=== PATIENT | female | born 1985 | race Caucasian/White ===

== ENCOUNTER 2017-01-20 15:42 | Observation (INO) ==
[2017-01-20] MEDS ORDERED: IOPAMIDOL 100 ML BOTTLE IJ ONE (15:43)
[2017-01-20] MEDS ORDERED: 0.9 % SODIUM CHLORIDE 1,000 ML IV ONE (16:01)
[2017-01-20] MEDS ORDERED: ONDANSETRON 4 MG/2 ML VIAL IV ONE ×2 (16:01→22:19)
--- NOTE | 2017-01-20 16:01 | Emergency Department Note ---
General Adult HPI - General Chief complaint: Abdominal Pain Stated complaint: Abd pain Time Seen by Provider: 01/20/17 15:57 Source: patient Mode of arrival: ambulatory Limitations: no limitations - History of Present Illness HPI Narrative: This patient returns to the emergency room. She was seen here 2 AM with nausea vomiting abdominal pain. Has slight diarrhea yesterday. Pain seems to be crampy but does not go away completely and is felt primarily in the epigastric region and goes through to her back. No history of symptoms like this before no history of pancreatitis GERD. Onset (ago): hour(s) Location: abdomen Radiation: back Severity: moderate Consistency: constant, intermittent, colicky Improves with: none Worsens with: none Associated symptoms: Reports: nausea/vomiting Treatments Prior to Arrival: other (Zofran) - Related Data Previous Rx's Medication Instructions Recorded Omeprazole [PriLOSEC] 20 mg PO BIDAC #10 capsule 01/20/17 Allergies Allergy/AdvReac Type Severity Reaction Status Date / Time No Known Drug Allergies Allergy Unverified 01/20/17 00:13 Review of Systems Constitutional: Denies: fever Eyes: Denies: eye pain ENT ED: Denies: ear pain Cardiovascular: Denies: chest pain Respiratory: Denies: cough Gastrointestinal: Reports: abdominal pain, nausea, vomiting, diarrhea. Denies: constipation, hematemesis, melena, hematochezia Genitourinary: Denies: urgency, dysuria, frequency Musculoskeletal: Reports: back pain Integumentary: Denies: rash Neurological: Denies: headache Psychiatric: Denies: anxiety, depression Past Medical History - Past Medical History Medical history: Reports: thyroid disease Surgical history ED: Reports: non-contributory WAIST PLEATER history: Reports: other (D&C vaginal delivery) Physical Exam - General Limitations: no limitations General appearance: alert - Head Head exam: atraumatic, normocephalic - Eye Eye exam: Present: normal appearance - ENT ENT exam: normal exam - Neck Neck exam: Present: normal inspection - Chest Chest inspection: Present: normal inspection - Respiratory Respiratory exam: Present: normal lung sounds bilaterally - Cardiovascular Cardiovascular exam: Present: regular rate, normal rhythm, normal heart sounds - Abdominal Exam Abdominal exam: Present: soft, tenderness. Absent: distention, guarding, rebound, rigidity Abdominal tenderness: Present: epigastrium, mild - Neurological Exam Neurological exam: Present: alert - Psychiatric Psychiatric exam: Present: normal affect, normal mood - Skin Skin exam: Present: warm, dry, intact Course Vital Signs Temperature 96.8 F L 01/20/17 15:43 Pulse Rate 64 01/20/17 15:43 Respiratory Rate 20 01/20/17 15:43 Blood Pressure 127/83 01/20/17 15:43 Pulse Oximetry (%) 99 01/20/17 15:43 Temperature 96.8 F L 01/20/17 15:43 Pulse Rate 61 01/20/17 21:45 Respiratory Rate 20 01/20/17 15:43 Blood Pressure 125/85 01/20/17 21:45 Pulse Oximetry (%) 98 01/20/17 21:45 Medical Decision Making - [facility] Narrative Medical decision making narrative: This patient has a stone in the neck of her gallbladder. sHe has had constant pain for 20 hours. I have discussed case with Dr. Holt and she will be admitted to the floor for surgery tomorrow - Lab Data Lab results reviewed: Yes I reviewed the patient's lab results. Result diagrams: 01/20/17 16:08 01/20/17 16:08 Lab Results 01/20/17 01/20/17 Range/Units 16:08 16:08 WBC 10.0 (4.5-11.0) K/mcL RBC 4.04 (4.00-5.20) M/mcL Hgb 13.3 (12.0-15.0) g/dL Hct 38.6 (36.0-48.0) % MCV 95.7 (80.0-100.0) fL MCH 32.9 (26.0-34.0) pg MCHC 34.4 (31.0-36.0) g/dL RDW 13.0 (11.5-14.5) % Plt Count 253 (140-440) K/mcL MPV 8.2 (7.4-10.4) fL Gran % 75.0 (38.0-78.0) % Lymph % (Auto) 20.1 (15.5-49.0) % [place] % (Auto) 4.6 (1.0-12.0) % Eos % (Auto) 0.2 (0.0-7.0) % Baso % (Auto) 0.1 (0.0-2.0) % Gran # 7.5 (1.8-8.0) K/mcL Lymph # 2.0 (1.5-4.8) K/mcL [place] # 0.5 (0.1-0.9) K/mcL Eos # 0 (0.0-0.7) K/mcL Baso # 0 (0.0-0.3) K/mcL Sodium 137 (133-145) mmol/L Potassium 3.6 (3.3-5.1) mmol/L Chloride 101 (96-108) mmol/L Carbon Dioxide 26 (22-30) mmol/L Anion Gap 10.0 (8-16) BUN 5 L (6-20) mg/dl Creatinine 0.7 (0.6-1.1) mg/dl GFR Calculation 114 Glucose 110 H (70-105) mg/dL Calcium 9.3 (8.6-10.4) mg/dl Total Bilirubin 0.4 (0.0-1.0) mg/dL AST 12 (0-37) U/l ALT 16 (0-40) U/l Alkaline Phosphatase 73 (39-117) U/L Total Protein 7.4 (5.9-8.4) gm/dL Albumin 4.5 (3.2-5.2) gm/dL Globulin 2.9 (2.2-3.7) gm/dL Albumin/Globulin Ratio 1.6 (1.0-2.3) Lipase 39 (7-60) U/L - Radiology Data Radiology results reviewed: Yes I reviewed the patient's radiology results. Disposition Clinical Impression: Cholecystitis Disposition: Xfer As Inpt ([facility]) Condition: Good Time of Disposition: 22:33
[2017-01-20] MEDS: HYDROmorphone 2 MG/ML SYRINGE IV PRN ×5 (16:36→23:55)
[2017-01-20 16:51] LABS: Basophils # (Auto) 0 K/mcL (0.0-0.3); Basophils % (Auto) 0.1 % (0.0-2.0); Eosinophils # (Auto) 0 K/mcL (0.0-0.7); Eosinophils % (Auto) 0.2 % (0.0-7.0); Lymphocytes % (Auto) 20.1 % (15.5-49.0); Mean Cell Volume 95.7 fL (80.0-100.0); Mean Corpuscular HGB Conc 34.4 g/dL (31.0-36.0); Mean Corpuscular Hemoglobin 32.9 pg (26.0-34.0); Monocytes # (Auto) 0.5 K/mcL (0.1-0.9); Monocytes % (Auto) 4.6 % (1.0-12.0); Platelet Count 253 K/mcL (140-440); RBC 4.04 M/mcL (4.00-5.20)
[2017-01-20 17:11] LABS: ALT/SGPT 16 U/l (0-40); Albumin 4.5 gm/dL (3.2-5.2); Albumin/Globulin Ratio 1.6 (1.0-2.3); Alkaline Phosphatase 73 U/L (39-117); Blood Urea Nitrogen 5 mg/dl (6-20); Lipase 39 U/L (7-60)
[2017-01-20] MEDS ORDERED: PHENobarb/HYOSCY/ATROPINE/SCOP 1 DOSE BOTTLE PO ONE (17:51)
[2017-01-20] MEDS ORDERED: PANTOPRAZOLE 40 MG VIAL IV ONE (17:51)
[2017-01-20] MEDS ORDERED: ONDANSETRON 4 MG/2 ML VIAL ONE (22:14)
[2017-01-20] MEDS ORDERED: PIPERACILLIN SODIUM/TAZOBACTAM 3.375 GM in DEXTROSE 5% IN WATER 50 ML IV SCH (22:45)
[2017-01-20] MEDS ORDERED: HYDROmorphone 2 MG/ML SYRINGE IV PRN (22:57)
[2017-01-20] MEDS: 0.9 % SODIUM CHLORIDE 1,000 ML IV SCH (23:19)
[2017-01-21] MEDS ORDERED: HYDROmorphone 2 MG/ML SYRINGE ONE ×4 (02:05→06:12)
[2017-01-21] MEDS: ONDANSETRON 4 MG/2 ML VIAL IV PRN ×3 (02:23→11:33)
--- NOTE | 2017-01-21 05:26 | Cat Scan Report ---
CLINICAL INFORMATION: Epigastric pain nausea and vomiting COMPARISON: None. TECHNIQUE: Following enteric contrast, 80 cc of Isovue-300 were injected intravenously, and 60 seconds later, 2.5 mm helical slices were obtained from the mid heart through the subtrochanteric regions. Following reconstruction, 2.5 mm sagittal, coronal and axial reformatted images were processed and reviewed at bone, lung and soft tissue windows. Five minutes later, 5 mm helical slices were obtained from the mid heart through the kidneys and viewed at soft tissue windows. FINDINGS: Lung bases show no abnormality - no effusion. Visualized heart is normal. Images through the abdomen show a few cholesterol stones in the gallbladder ranging up to 10 mm. There is also slight gallbladder wall thickening and small rim of pericholecystic fluid compatible with cholecystitis. Intrahepatic and common bile ducts are normal caliber - CBD is 5 mm. Both kidneys, adrenal glands, spleen, pancreas and aorta, including aortic branches, are normal in size configuration and attenuation without focal lesion. There is no free air, free fluid or adenopathy. Stomach, small and large bowel, including the appendix, are normal. Images through the pelvis show urinary bladder, uterus and ovaries are normal. The bone windows no osseous abnormality IMPRESSION: Cholelithiasis. Pericholecystic fluid is compatible with associated cholecystitis Interpreted and Authenticated by: Fuentes Bailon 01/21/17
--- NOTE | 2017-01-21 05:29 | Ultrasound Report ---
CLINICAL INFORMATION: Right upper quadrant pain and nausea.] Cholelithiasis seen on CT COMPARISON: None. FINDINGS: Multiple stones within the gallbladder. Gallbladder wall is mildly thickened - 4 mm suggesting cholecystitis. There is no focal tenderness over the gallbladder however. Common bile duct is normal - 6 mm. The liver, pancreas and right kidney are normal. There is no free fluid IMPRESSION: Cholelithiasis. Mild gallbladder wall thickening suggests associated cholecystitis Interpreted and Authenticated by: Fuentes Bailon 01/21/17
[2017-01-21] MEDS: 0.9 % SODIUM CHLORIDE 1,000 ML IV SCH ×3 (06:05→17:45)
[2017-01-21] MEDS: HYDROmorphone 2 MG/ML SYRINGE IV PRN ×5 (06:10→14:15)
[2017-01-21] MEDS ORDERED: PIPERACILLIN SODIUM/TAZOBACTAM 3.375 GM in DEXTROSE 5% IN WATER 50 ML IV SCH (12:15)
[2017-01-21] MEDS ORDERED: PIPERACILLIN SODIUM/TAZOBACTAM 3.375 GM in DEXTROSE 5% IN WATER 50 ML IV ONE (12:15)
[2017-01-21] MEDS ORDERED: DEXAMETHASONE 10 MG/ML VIAL IV ONE (15:30)
[2017-01-21] MEDS ORDERED: fentaNYL 100 MCG/2 ML VIAL IV ONE (15:30)
[2017-01-21] MEDS ORDERED: PROPOFOL 200 MG/20 ML VIAL IV ONE (15:30)
[2017-01-21] MEDS ORDERED: MIDAZOLAM 5 MG/5 ML VIAL IV ONE (15:30)
[2017-01-21] MEDS ORDERED: ONDANSETRON 4 MG/2 ML VIAL IV ONE (15:30)
[2017-01-21] MEDS ORDERED: LIDOCAINE HCL/PF 100 MG/5 ML SYRINGE IV ONE (15:30)
[2017-01-21] MEDS ORDERED: ROCURONIUM 10 MG/ML ML IV ONE (15:30)
[2017-01-21] MEDS ORDERED: MEPERIDINE 50 MG/ML SYRINGE IM PRN (15:53)
[2017-01-21] MEDS ORDERED: fentaNYL 100 MCG/2 ML VIAL IV PRN (15:53)
[2017-01-21] MEDS ORDERED: PROMETHAZINE 25 MG/ML VIAL IM PRN (15:53)
[2017-01-21] MEDS ORDERED: IPRATROPIUM/ALBUTEROL 3 ML AMPUL.NEB NEB PRN (15:53)
[2017-01-21] MEDS ORDERED: MEPERIDINE 25 MG/ML SYRINGE IV PRN (15:53)
[2017-01-21] MEDS ORDERED: ePHEDrine 50 MG/ML AMPUL IV PRN (15:53)
[2017-01-21] MEDS ORDERED: METOPROLOL TARTRATE 5 MG/5 ML VIAL IV PRN (15:53)
[2017-01-21] MEDS ORDERED: PROMETHAZINE 25 MG/ML VIAL IV PRN ×2 (15:53→16:45)
[2017-01-21] MEDS ORDERED: FLUMAZENIL 0.1 MG/ML ML IV PRN (15:53)
[2017-01-21] MEDS ORDERED: diphenhydrAMINE 50 MG/ML VIAL IV PRN (15:53)
[2017-01-21] MEDS ORDERED: HYDROmorphone 2 MG/ML SYRINGE IV PRN ×2 (15:53→16:45)
[2017-01-21] MEDS ORDERED: ONDANSETRON 4 MG/2 ML VIAL IV PRN ×2 (15:53→16:45)
[2017-01-21] MEDS ORDERED: NALOXONE HCL 0.4 MG/ML VIAL IV PRN (15:53)
[2017-01-21] MEDS ORDERED: BENZOCAINE/MENTHOL 1 LOZENGE PO PRN (15:53)
[2017-01-21] MEDS ORDERED: ATROPINE SULFATE 0.4 MG/ML VIAL IV PRN (15:53)
[2017-01-21] MEDS ORDERED: METHOCARBAMOL 1,000 MG/10 ML VIAL IV PRN (15:53)
[2017-01-21] MEDS ORDERED: LACTATED RINGERS 1,000 ML IV SCH (16:00)
--- NOTE | 2017-01-21 16:28 | General Surg History&Physical ---
History of Present Illness Patient information: Note initiated : 01/21/17 at 4:26 pm Service Date, if different from initiated Date: [] Patient: Latasha Cruz 31 y/o F admitted on 01/20/17 for Abd Pain/ Cholecystitis. Chief Complaint: [] HPI: Ms. Cruz is a 31 year old female with onset of severe heartburn followed by epigastric pain and nausea w on the morning of admission. She was seen in the emergencyoom where evaluation confirmed that s acute cholecystitis with cholelithiasis. She is admitted and will have laparoscopic cholecystectomy. The patient is counseled for the procedure and she giveher verbal and written informed consent. Past History Past medical history: no chronic medical illness Past surgical history: no surgical illness Medications and Allergies Home Medications Medication Instructions Recorded Confirmed Type Omeprazole [Prilosec] 20 mg PO BIDAC #10 cap 01/20/17 01/20/17 Rx Levofloxacin [Levaquin] 750 mg PO DAILY #7 tablet 01/22/17 Rx oxyCODONE/APAP [Percocet 5-325 mg] 2 tab PO Q4HP PRN #60 tablet 01/22/17 Rx Allergies Allergy/AdvReac Type Severity Reaction Status Date / Time No Known Drug Allergies Allergy Unverified 01/20/17 00:13 Exam Temp Pulse Resp BP Pulse Ox 97.7 F 79 18 114/78 97 01/21/17 11:59 01/21/17 03:20 01/21/17 11:59 01/21/17 11:59 01/21/17 11:59 - General physical appearance well developed, well nourished, no distress - Eyes PERRL, normal ocular movement - ENT normal pinna, normal nares, normal mucosa, no hearing loss, no congestion - Head Head exam IM: Present: atraumatic, normocephalic - Neck no masses, no bruits, trachea midline, no lymphadectomy, no venous distension - Cardiovascular Cardiovascular exam IM: Present: normal rate and rhythm - Respiratory normal expansion, normal respiratory effort, clear to percussion, clear to auscultation - Abdomen Abdomen: Present: soft, tender (mild abdominal distention with moderate epigastric and right upper quadrant tenderness with guarding; few active leisa), bowel sounds Hernia: Present: none - Integumentary Present: no rash, no growths, no abnormal pigmentation - Neurologic Present: normal coordination, normal sensation - Musculoskeletal Present: normal gait, normal posture - Psychiatric Present: oriented to time, oriented to person, oriented to place, speech is normal, memory intact Assessment and Plan (1) Acute cholecystitis due to biliary calculus will do laparoscopic cholecystectomy later today continue zosyn q6h continue npo Status: Acute
--- NOTE | 2017-01-21 16:30 | Brief Operative Note ---
Date of procedure: 01/21/17 Pre-op diagnosis: acute cholecystitis with cholelithiasis Post-op diagnosis: same (with empyema of gallbladder) Procedure: laparoscopic cholecystectomy Anesthesia: GETA Findings: acute severe cholecystitis with empyema and obstructed cystic duct Complications: none Surgeon: Amalia Holt Estimated blood loss (cc): 30 Specimens Removed/Pathology: other (gallbladder) Condition: stable Disposition: PACU
[2017-01-21] MEDS ORDERED: ACETAMINOPHEN 1,000 MG/100 ML BOTTLE IV PRN (16:45)
[2017-01-21] MEDS: PIPERACILLIN SODIUM/TAZOBACTAM 3.375 GM in DEXTROSE 5% IN WATER 50 ML IV SCH ×2 (17:49→23:58)
[2017-01-21] MEDS: PANTOPRAZOLE 40 MG PACKET PO SCH (18:02)
[2017-01-21] MEDS: oxyCODONE/APAP 5/325MG TABLET PO PRN (20:26)
[2017-01-21] MEDS ORDERED: ZOLPIDEM 5 MG TABLET PO PRN (21:00)
[2017-01-22] MEDS: oxyCODONE/APAP 5/325MG TABLET PO PRN ×3 (00:10→09:17)
[2017-01-22] MEDS: 0.9 % SODIUM CHLORIDE 1,000 ML IV SCH ×2 (02:37→09:19)
[2017-01-22] MEDS: PIPERACILLIN SODIUM/TAZOBACTAM 3.375 GM in DEXTROSE 5% IN WATER 50 ML IV SCH ×2 (05:50→11:50)
[2017-01-22 06:31] LABS: Basophils # (Auto) 0 K/mcL (0.0-0.3); Basophils % (Auto) 0.2 % (0.0-2.0); Eosinophils # (Auto) 0 K/mcL (0.0-0.7); Eosinophils % (Auto) 0 % (0.0-7.0); Granulocytes % (Auto) 78.8 % (38.0-78.0); Lymphocytes # (Auto) 1.4 K/mcL (1.5-4.8); Lymphocytes % (Auto) 15.5 % (15.5-49.0); Mean Cell Volume 96.2 fL (80.0-100.0); Mean Corpuscular HGB Conc 34.7 g/dL (31.0-36.0); Mean Corpuscular Hemoglobin 33.3 pg (26.0-34.0); Monocytes # (Auto) 0.5 K/mcL (0.1-0.9); Monocytes % (Auto) 5.5 % (1.0-12.0); Platelet Count 212 K/mcL (140-440); RBC 3.48 M/mcL (4.00-5.20); Red Cell Distribution Width 12.9 % (11.5-14.5)
[2017-01-22 07:02] LABS: ALT/SGPT 24 U/l (0-40); Albumin 3.4 gm/dL (3.2-5.2); Albumin/Globulin Ratio 1.2 (1.0-2.3); Alkaline Phosphatase 64 U/L (39-117); Blood Urea Nitrogen 3 mg/dl (6-20)
[2017-01-22] MEDS: PANTOPRAZOLE 40 MG PACKET PO SCH (08:23)
--- NOTE | 2017-01-22 10:41 | Discharge Summary ---
Providers - Providers Patient information: Note initiated : 01/22/17 at 10:38 am Service Date, if different from initiated Date: [] Patient: Latasha Cruz 31 y/o F admitted on 01/20/17 for Abd Pain/ Cholecystitis. Chief Complaint: [] Date of admission: 01/20/17 Discharge date: 01/22/17 Attending physician: Amalia Holt Hospitalization Hospital course: 31-year-old femal who was admitted al pain with findings of cholelithiasis and cystic duct obstruction. Her liver transaminases were normal. She was admitted started on antibiotics and IV fluids On foc50lr she had laparoscopy and was founma of the gallbladder. She had laparoscopic cholecystectomy which was uneventful. She is doing well and has no complaints except for mild tenderness of her incisions. All of her preoperative symptoms have resolved she is afebrile and does not have leukocytosis She has tolerated a regular diet without discomfort. She is discharged home and will be placed on Levaquin for 7 days. She will be moving to [place] on Tuesday and she is advised to have her dung removed and her drain removed in 10 days. Discharge diagnosis: acute empyema of gallbladder Reason for admission: abdominal pain nausea and vomiting Procedures: laparoscopic cholecystectomy Pertinent studies/significant findings: CT of the abdomen and pelvis Upper abdominal ultrasound Complications: none Exam Temp Pulse Resp BP Pulse Ox 98.9 F 76 16 100/63 95 01/22/17 07:22 01/22/17 04:00 01/22/17 07:30 01/22/17 07:22 01/22/17 07:30 - General physical appearance well developed, well nourished, no distress - Eyes PERRL, normal ocular movement - ENT normal pinna, normal nares, normal mucosa, no hearing loss, no congestion - Head Head exam IM: Present: atraumatic, normocephalic - Neck no masses, no bruits, trachea midline, no lymphadectomy, no venous distension - Cardiovascular Cardiovascular exam IM: Present: normal rate and rhythm - Respiratory normal expansion, normal respiratory effort, clear to percussion, clear to auscultation - Abdomen Abdomen: Present: soft, tender (tenderness only around operative sites.), bowel sounds Hernia: Present: none - Integumentary Present: no rash, no growths, no abnormal pigmentation - Neurologic Present: normal coordination, normal sensation - Musculoskeletal Present: normal gait, normal posture - Psychiatric Present: oriented to time, oriented to person, oriented to place, speech is normal, memory intact Discharge Plan - Patient/Caregiver Discharge Instructions Activity: increase activity as tolerated Diet: Regular Diet Prescriptions: Levofloxacin [Levaquin] 750 mg PO DAILY #7 tablet oxyCODONE/APAP [Percocet 5-325 mg] 2 tab PO Q4HP PRN #60 tablet PRN Reason: Pain - Follow up Plan Follow up with: Amalia Holt MD [Physician] - Disposition: Home, Self-Care Prognosis: Good Rehab Potential: Good I certify that the patient requires SNF services.: No Overall status at discharge: patient is not back to baseline Pending Studies Resuscitation Status Full Code Diet Regular Diet Start Sat January 22 Breakfast Sodium Chloride (Sodium Chloride 0.9%) 1,000 mls @ 150 mls/hr IV .[id number] [facility] Last Admin: 01/22/17 09:19 Dose: 150 mls/hr Infusion: 01/22/17 09:19 Dose: 150 mls/hr Admin: 01/22/17 02:37 Dose: 150 mls/hr Infusion: 01/22/17 00:26 Dose: 0 mls/hr Admin: 01/21/17 17:45 Dose: 150 mls/hr Piperacillin Sod/Tazobactam (Sod 3.375 gm/ Dextrose) 50 mls @ 100 mls/hr IV Q6H [facility] Last Admin: 01/22/17 05:50 Dose: 100 mls/hr Infusion: 01/22/17 00:28 Dose: 0 mls/hr Admin: 01/21/17 23:58 Dose: 100 mls/hr Infusion: 01/21/17 18:17 Dose: 100 mls/hr Admin: 01/21/17 17:49 Dose: 100 mls/hr Acetaminophen (Ofirmev) 1,000 mg in 100 mls @ 200 mls/hr IV Q6HP PRN PRN Reason: Pain Last Admin: 01/21/17 21:17 Dose: 200 mls/hr Oxycodone/Acetaminophen (Percocet 5-325 Mg) 2 tab PO Q4HP PRN PRN Reason: Pain Last Admin: 01/22/17 09:17 Dose: 2 tab Admin: 01/22/17 05:32 Dose: 2 tab Admin: 01/22/17 00:10 Dose: 2 tab Admin: 01/21/17 20:26 Dose: 2 tab Pantoprazole Sodium (Protonix) 40 mg PO BIDAC HAL Last Admin: 01/22/17 08:23 Dose: 40 mg Admin: 01/21/17 18:02 Dose: 40 mg Shift Summary 01/22/17 03:42 Shift Summary by Francoise Beck Came back from surgery yesterday about 1730. Has a MORAIMA and incision sites x4 with tagaderm dressings. MORAIAM has put out 160mls so far this shift. Up with 1 assist r/t IV pole. Pain has been controlled with 2 tabs Percocet x2 so far and Offirmev x1, hot packs used also. Jonathon ordered a regular diet order for breakfast, she has been tolerating her Full liquid diet tonight without nausea. Voids large amounts in bathroom. Has required 1L NC while sleeping, cont pulse ox on. Alert and oriented, friendly and cooperative. Should d/c home today. Initialized on 01/22/17 03:42 - END OF NOTE
--- NOTE | 2017-01-25 15:14 | Surgical Pathology Report ---
HISTOLOGY SPECIMEN MICROSCOPIC DIAGNOSIS GALLBLADDER, CHOLECYSTECTOMY: -- ACUTE CHOLECYSTITIS WITH MUCOSAL ULCERATION AND HEMORRHAGE AND REACTIVE EPITHELIAL CHANGES. -- CHOLELITHIASIS. (SE:jeb) PROCEDURAL IMPRESSION Cholecystitis, cholelithiasis. GROSS DESCRIPTION The specimen is received as gallbladder and consists of a cholecystectomy specimen that measures 9.5 x 3.7 x 3.5 cm. The serosa has a dusky hyperemic cabello color. The cystic duct region is stapled. A gallstone is noted firmly impacted within the cystic duct, just adjacent to the staple. A second staple is present within the adjacent tissue. Gallstones are additionally present in this area. The gallbladder lumen also appears to be firmly impacted with gallstones. Opening reveals watery brown, bilious material with numerous irregularly shaped yellow gallstones that measure up to 2.7 cm. The wall is thickened and firm, and ranges in thickness from 0.4-0.7 cm. 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 (ACP:brayan) Electronically Signed by: Ivory Ibrahim D.O.
--- NOTE | 2017-01-26 15:56 | Operative Note ---
DATE OF OPERATION: 01/21/2017 PREOPERATIVE DIAGNOSIS: Acute cholecystitis with cholelithiasis. POSTOPERATIVE DIAGNOSIS: Acute cholecystitis with empyema of the gallbladder and cholelithiasis. PROCEDURE: Laparoscopic cholecystectomy. SURGEON: Amalia Holt MD. FINDINGS: Acute severe cholecystitis with tightly engorged gallbladder filled with pus and an obstructed cystic duct and large stones. DESCRIPTION OF PROCEDURE: Under general anesthesia, the patient's abdomen was prepped and draped in the sterile field. Supraumbilical incision was made. Veress needle was inserted uneventfully. Abdomen was insufflated with 3 liters of CO2. A 12 mm port was placed. Laparoscope was placed. A severely inflamed, edematous, erythematous gallbladder was encountered with a very thick wall. It was decompressed with a Weck needle and contained a large volume of milky pus. Once this was done, a 12 mm port and two 5 mm ports were placed in the right subcostal region. The gallbladder was grasped and positioned. Using primarily blunt dissection, the cystic duct and cystic artery were dissected. They were followed close to the wall of the gallbladder. Cystic duct was clipped with multiple clips and divided. Cystic artery had two branches. Each was followed onto the wall of the gallbladder, clipped with multiple clips and divided. Using primarily blunt dissection with occasional electrocautery, the gallbladder was from the infrahepatic bed. There was a dilated vessel that traversed the posterior wall and it was clipped about half way up the posterior wall of the gallbladder. This was done with three clips and divided. The gallbladder was then fully dissected out of the bed. Irrigation was carried out. The gallbladder was placed in an Endopouch and retrieved. MORAIMA drain was placed and brought out through the most lateral incision. CO2 was allowed to escape from the abdomen, and the ports were removed. The fascia at the umbilicus was closed with 0 Vicryl. Skin incisions were closed with dung. Drain was secured with 2-0 nylon. The patient tolerated the procedure well. She was awakened, transferred to a bed and taken to the postanesthetic care unit in stable, satisfactory condition. LCS:rigoberto Job ID: [id number] Doc ID: [id number] Amalia Holt M.D.
== END 2017-01-22 13:12 | disposition home or self-care (01) ==
LOC: MEDSUR 15:42 → ED 15:42 → MEDSUR 23:06
PROVIDERS: ADMIT Family Medicine Adult Medicine; ATTEND Family Medicine Adult Medicine